=== PATIENT | female | born 1990 | race Caucasian/White ===

== ENCOUNTER 2020-02-29 16:18 | Emergency (ER) | payer BC, MEDICAID ==
--- NOTE | 2020-02-29 16:24 | EDM.PDOC ---
<Wilton Schwarz - Last Filed: 02/29/20 21:46> ED HPI GENERAL MEDICAL PROBLEM - General Stated Complaint: PAIN IN THE LEFT ABDOMINAL Time Seen by Provider: 02/29/20 16:30 Source of Information: Reports: Patient, EMS History Limitations: Reports: No Limitations left lower abdominal Pain Score (Numeric/FACES): 4 - Related Data Allergies Allergy/AdvReac Type Severity Reaction Status Date / Time No Known Allergies Allergy Verified 02/29/20 16:35 Home Meds: Home Meds Pnv No.95/Ferrous Fum/Folic AC [ Caplet] 1 each PO DAILY 02/29/20 [History] Course - Vital Signs Text/Narrative:: I assumed care of this patient at [address] Bermudez. In brief, this is a 29-year-old female who has a viable first trimester presenting with abdominal pain. She was transferred here by [facility] with lower abdominal pain. They were unable to do an ultrasound to evaluate her pain. She has been hemodynamically stable. She had lab work done at [facility] earlier today. We did obtain a pelvic ultrasound which shows an IUP at 8 weeks 2 days with normal heart rate, 2 cm subchorionic hemorrhage, and a large complex cystic lesion with internal nodularity and septations measuring 8 to 9 cm arising posterior to the uterus on the left that is likely a left adnexal lesion. Dr. Teran is contacted the [facility] physician who is coming to the emergency department to evaluate the patient. I reevaluated the patient and she is resting comfortably. Dr. Bell did evaluate the patient in the emergency department. She did discuss laparoscopy and progesterone supplementation with the patient to evaluate for possible ovarian torsion/ovarian cyst evaluation. After considering her options, the patient wants to go home tonight to follow-up with her TEMP RECRUITER Dr. Mcgowan as an outpatient. She understands that she should come back to the emergency department if her pain becomes significantly worse, she has vaginal bleeding, severe abdominal pain, or any other new or worsening symptoms. I counseled that she can take [id number] acetaminophen for pain and use a heating pad. Plan: Patient is stable to discharge home with outpatient [facility] clinic follow- up. Strict emergency department return precautions were provided, patient indicated understanding. All questions were answered prior to departure. Discharged in good condition. Departure - Departure Time of Disposition: 21:24 Disposition: Home, Self-Care 01 Condition: Good Clinical Impression: Abdominal pain affecting , Ovarian cyst affecting in first trimester, antepartum - Discharge Information *PRESCRIPTION DRUG MONITORING PROGRAM REVIEWED*: Not Applicable *COPY OF PRESCRIPTION DRUG MONITORING REPORT IN PATIENT VALENTÍN: Not Applicable Instructions: Ovarian Cystectomy, Care After, Ovarian Cyst, Abdominal Pain During Referrals: PCP,Not In Area [Primary Care Provider] - Forms: ED Department Discharge Additional Instructions: Please follow-up with your TEMP RECRUITER Dr. Mcgowan in the next 1 to 2 days for reevaluation. Warning signs to come back to the ER include: Worsening abdominal pain, severe abdominal or back pain, vaginal bleeding, or any other new or concerning symptoms. Please return the emergency department immediately if your symptoms worsen or if you feel worse. Thank you for choosing the [facility] emergency department in [place] for your medical needs today. It was a pleasure caring for you. The following information is given to patients seen in the emergency department who are being discharged. This information is to outline your options for follow-up care. We provide all patients seen in our emergency department with a follow-up referral. The need for follow-up, as well as the timing and circumstances, are variable depending upon the specifics of your emergency department visit. If you don't have a primary care physician on staff, we will provide you with a referral. We always advise you to contact your personal physician following an emergency department visit to inform them of the circumstance of the visit and for follow-up with them and/or the need for any referrals to a consulting specialist. The emergency department will also refer you to a specialist when appropriate. This referral assures that you have the opportunity for follow-up care with a specialist. All of these measure are taken in an effort to provide you with optimal care, which includes your follow-up. Under all circumstances we always encourage you to contact your private physician who remains a resource for coordinating your care. When calling for follow-up care, please make the office aware that this follow-up is from your recent emergency room visit. If for any reason you are refused follow-up, please contact the [facility] Emergency Department at and asked to speak to the emergency department charge nurse. If you do not have a primary care physician that is caring for you, you can contact these clinics below to set up an appointment to establish care: [facility] [address] [place] [address] [facility] [address] [place] [address] <Albaro Bermudez - Last Filed: 03/01/20 11:53> ED HPI GENERAL MEDICAL PROBLEM - History of Present Illness INITIAL COMMENTS - FREE TEXT/NARRATIVE: History of present illness: [] The patient has severe left lower quadrant pain. She was sent from [place]. They evaluated her there. The patient has no prior . She has not seen an manager land yet. She saw the emergency physician in [place] and they saw her and decided she needed an ultrasound because of severe left lower quadrant pain. The patient has a history of bradycardia and she was bradycardic there. She was never tachycardic or hypotensive. None set at 10:30 AM. She said the pain before in the left lower quadrant but it lasted less than an hour. Today it persisted. It does not change with movement or anything else. It is moderately severe. Review of systems: As per history of present illness and below otherwise all systems reviewed and negative. Past medical history: As per history of present illness and as reviewed below otherwise noncontributory. Surgical history: As per history of present illness and as reviewed below otherwise noncontributory. Social history: No reported history of drug or alcohol abuse. Family history: As per history of present illness and as reviewed below otherwise noncontributory. Physical exam: Constitutional - well developed, well-nourished and in no acute distress HEENT - normocephalic, no evidence of trauma - external nose and mouth normal - no mass in neck and no JVD - mucosae moist EYES - full EOM, PERRL, no icterus - no evidence of inflammation, injection, or drainage Respiratory - no respiratory distress, equal bilateral expansion, lungs clear to auscultation and no abnormal lung sounds Cardiovascular - Regular Rhythm with S1 and S2 appreciated and no murmur, gallop or rub. GI - abdomen tender left lower quadrant but soft without distension or organomegaly - normal bowel sounds - no guard or rebound Musculoskeletal no gross deformity of long bones or joints - no tenderness, swelling or edema Neurologic - Alert and oriented times four - CN II-XII grossly intact - motor sensory and coordination symmetrically normal Psychiatric - appropriate mood and affect with normal thought content Hematologic - No petechiae or purpura - mucosa appropriate color and sclera not pale - normal nail bed color and refill Integument - no rash or evidence of trauma - normal turgor Diagnostics: [] Therapeutics: [] Impression: [] Plan: [] Definitive disposition and diagnosis as appropriate pending reevaluation and review of above. ED ROS GENERAL - Review of Systems Review Of Systems: Comprehensive ROS is negative, except as noted in HPI. ED EXAM, GENERAL - Physical Exam Exam: See Below Free Text/Narrative:: My physical exam is in the HPI Course - Vital Signs Text/Narrative:: i DISCUSSED THE CASE WITH airline ticket agent CLEAN ENERGY POLICY ANALYST AND SHE WILL SEE AND EVALUATE IN THE DEPARTMENT. My shift ended and I turned the case over to LEGAL AID and my partner in the department for final disposiiton. Dr. Bell was coming to see the patient and make a disposition when my shift ended. My partner Dr. Schwarz agreed to make a disposition for this patient and address any new delevopments should tehy occur. Last Recorded V/S: Last Vital Signs Temp 37.1 C 02/29/20 21:37 Pulse 71 02/29/20 21:37 Resp 16 02/29/20 21:37 BP 111/63 02/29/20 21:37 Pulse Ox 99 02/29/20 21:37 - Orders/Labs/Meds Orders: Active Orders 24 hr Category Date Time Status Consult to Physician [CONS] Stat Cons 02/29/20 20:20 Active Labs: Laboratory Tests 02/29/20 02/29/20 Range/Units 16:40 16:40 HCG, Quant 06834.0 mIU/mL Blood Type O POSITIVE Meds: Medications Discontinued Medications Generic Name Dose Route Start Last Admin Trade Name Freq PRN Reason Stop Dose Admin Morphine Sulfate 4 mg 02/29/20 18:08 02/29/20 18:15 Morphine IVPUSH 02/29/20 18:09 4 mg ONETIME ONE Administration Ondansetron HCl 4 mg 02/29/20 18:09 02/29/20 18:14 Zofran IVPUSH 02/29/20 18:10 4 mg ONETIME ONE Administration
[2020-02-29] MEDS ORDERED: Morphine 4 MG/ML Syringe IVPUSH ONE (18:08)
[2020-02-29] MEDS ORDERED: Ondansetron 4 MG/2 ML SDV IVPUSH ONE (18:09)
--- NOTE | 2020-02-29 18:39 | US ---
INDICATION: female with left lower quadrant pain. TECHNIQUE: Transvaginal pelvic/obstetrical ultrasound Findings : Single live intrauterine is identified with mean gestational age of 8 weeks 2 days corresponding estimated date of delivery of 10/08/2020. Specifically an intrauterine gestational sac containing a yolk sac and embryo with cardiac activity is identified with cardiac activity in the embryo at 178 beats per minute. Small amount of fluid in the endocervix could be related to blood products. Small subchorionic hemorrhage along the inferior left aspect of the gestational sac measures up to 2.0 x 0.9 cm. Yolk sac is upper limits normal for size at 5.2 mm. Large complex solid and cystic lesion posterior to the uterus extending into the left adnexal region measures 8.8 x 8.1 x 6.8 cm. This contains septations which are prominently thick with internal soft tissue nodularity. It is difficult to determine with certainty if this arises from the left ovary or adjacent to it. No definite blood flow is seen within this lesion. This is much larger than typical for physiologic corpus luteal ovarian cyst. Neoplastic etiology including a dermoid would be a consideration. Given the live intrauterine , it would be unusual to have an ectopic at the same time and this is larger than would be expected for such etiology. Thus I suspect this is a left ovarian or adnexal lesion of separate etiology. If this arises in the left ovary which is difficult to confirm with certainty if patient would be at risk for ovarian torsion. It is difficult to tell with certainty if the left ovary is seen along the anterior aspect of this mass. Right ovary is normal measuring 3.0 x 1.2 x 1.6 cm. Remainder negative. IMPRESSION: 1. Single live intrauterine with mean gestational age of 8 weeks 2 days corresponding estimated delivery of 10/08/2020. 2. 2 cm subchorionic hemorrhage along the inferior left aspect of the gestational sac with small amount of fluid in the endocervix likely related to blood products from a subchorionic hemorrhage. 3. Yolk sac is at the upper limits of normal for size at 5.2 mm 4. Large complex cystic lesion containing internal nodularity and moderately moderate to prominently thick septations measures 8-9 cm arising posterior to the uterus on the left is likely a left adnexal lesion. This is much larger than typical for a hemorrhagic physiologic corpus luteal cyst and does not have the typical appearance of such a physiologic lesion. Neoplastic etiology including dermoid or other neoplasm should be excluded. Large endometrioma could cause this finding also. Other complex cystic and solid pelvic masses remain a diagnostic consideration. OBGYN consult to guide further management this is recommended. It is difficult to tell with certainty if this arises in the left ovary or adjacent to it. No discrete blood flow within this mass. 5. Right ovary within normal limits. Dictated by Radhames Mccracken MD @ Feb 29 2020 6:24PM Signed by Dr. Radhames Mccracken @ Feb 29 2020 6:38PM
--- NOTE | 2020-02-29 20:29 | EDM.PDOC ---
ED HPI GENERAL MEDICAL PROBLEM - General Chief Complaint: Abdominal Pain Stated Complaint: PAIN IN THE LEFT ABDOMINAL Time Seen by Provider: 02/29/20 20:20 Source of Information: Reports: Patient History Limitations: Reports: No Limitations - History of Present Illness INITIAL COMMENTS - FREE TEXT/NARRATIVE: 29 yo @ 8w5d ( d) here complaining of left side pain for 1 day. she states she had the pain last month and it was self limiting. She states that her pain varies in intensity from dull to severe. she is not in a lot of pain right now due to the morphine she recieved in [facility] and in [place]. she denies any medical problems. she denies nausea and vomiting , she has some rectal pressure PMH: nil Past surgery: surgery for fracture GynHx; non contributory Exam: General: Appears comfortable CVS: S1S2 no murmurs Chest: CTA BL Abdomen; Flat , non distended , no organomegaly , no rebound or guarding Pelvic: Normal external genitalia , normal sized anteverted uterus , Left adnexal fullness noted mild right adnexal tenderness , no left adnexal tenderness VSS: 102/64 , HR: 76 USS: IUP @ 8w2d with FHR , subchorionic hemorrhage Left adnexal complex cyst that may arise from the ovary , however does not appear physiology cannot rule out neoplasm I viewed images , septation noted but appears no doppler flow within the mass A/P 29yo @ 8w5d with symptomatic left adnexal cyst , cannot rule out ovarian torsion Plan Patient informed of the varied scenarios for diagnosis it may be a left adnexal cyst with or without torsion she was informed that the way to definately diagnosis this is via laparoscopy , i informed her that cyst removal may cause increased risk of miscarriage if this is the corpus luteum of . however she can have progesterone supplementation. However not doing a laparoscopy may leave a torsion undiagnosed and can lead to ovarian necrosis. I also spoke extensive with spouse on the phone and gave them time to make a decision on what to do Addendum: Patient states her pain is well controlled now and will like to follow up with her OB in [place] tomorrow, Informed her that if pain gets worse she should be seen as soon as possible . left lower abdominal Pain Score (Numeric/FACES): 4 - Related Data Allergies Allergy/AdvReac Type Severity Reaction Status Date / Time No Known Allergies Allergy Verified 02/29/20 16:35 Home Meds: Home Meds Pnv No.95/Ferrous Fum/Folic AC [ Caplet] 1 each PO DAILY 02/29/20 [History] Past Medical History - Infectious Disease History Infectious Disease History: Reports: Chicken Pox - Past Surgical History HEENT Surgical History: Reports: Adenoidectomy, Tonsillectomy Musculoskeletal Surgical History: Reports: Other (See Below) Other Musculoskeletal Surgeries/Procedures:: right knee surgery Social & Family History - Tobacco Use Tobacco Use Status *Q: Never Tobacco User - Recreational Drug Use Recreational Drug Use: No ED ROS GENERAL - Review of Systems Review Of Systems: Comprehensive ROS is negative, except as noted in HPI. ED EXAM - Physical Exam Exam: See Below (HPI) Course - Vital Signs Last Recorded V/S: Last Vital Signs Temp 36.2 C 02/29/20 16:36 Pulse 84 02/29/20 19:36 Resp 16 02/29/20 19:36 BP 102/64 02/29/20 19:36 Pulse Ox 99 02/29/20 19:36 - Orders/Labs/Meds Orders: Active Orders 24 hr Category Date Time Status Notify Provider Consults [RC] ASDIRECTED Care 02/29/20 20:21 Active Consult to Physician [CONS] Stat Cons 02/29/20 20:20 Active Labs: Laboratory Tests 02/29/20 02/29/20 Range/Units 16:40 16:40 HCG, Quant 04107.0 mIU/mL Blood Type O POSITIVE Meds: Medications Discontinued Medications Generic Name Dose Route Start Last Admin Trade Name Juana PRN Reason Stop Dose Admin Morphine Sulfate 4 mg 02/29/20 18:08 02/29/20 18:15 Morphine IVPUSH 02/29/20 18:09 4 mg ONETIME ONE Administration Ondansetron HCl 4 mg 02/29/20 18:09 02/29/20 18:14 Zofran IVPUSH 02/29/20 18:10 4 mg ONETIME ONE Administration Departure - Departure Time of Disposition: 20:45 Disposition: Home, Self-Care 01 Clinical Impression: Ovarian cyst affecting in first trimester, antepartum - Discharge Information *PRESCRIPTION DRUG MONITORING PROGRAM REVIEWED*: Not Applicable *COPY OF PRESCRIPTION DRUG MONITORING REPORT IN PATIENT VALENTÍN: Not Applicable Referrals: PCP,Not In Area [Primary Care Provider] - Sepsis Event Note (ED) - Evaluation Sepsis Screening Result: No Definite Risk - Focused Exam Vital Signs: Vital Signs Temp Pulse Resp BP Pulse Ox 02/29/20 19:36 84 16 102/64 99 02/29/20 19:06 70 18 117/72 99 02/29/20 18:30 74 18 97/72 99 02/29/20 18:20 92 98 02/29/20 16:36 36.2 C 78 18 114/55 L 99 - Problem List & Annotations (1) Unspecified ovarian cyst, left side SNOMED Code(s): 80745308 Code(s): N83.202 - UNSPECIFIED OVARIAN CYST, LEFT SIDE Status: Acute Current Visit: Yes (2) Adnexal tenderness, left SNOMED Code(s): 075845999 Code(s): R10.2 - PELVIC AND PERINEAL PAIN Status: Acute Current Visit: Yes - Problem List Review Problem List Initiated/Reviewed/Updated: Yes - Assessment/Plan Admission H&P: Please use this note as an admission H&P
== END 2020-02-29 21:48 | disposition home or self-care (01) ==
LOC: MW.ED 16:18
DX: O34.81 Maternal care for other abnormalities of pelvic organs, first trimester (principal); N83.202 Unspecified ovarian cyst, left side; Z3A.08 8 weeks gestation of pregnancy
CPT/HCPCS: 36415; 76815; 84702; 86900; 86901; 96374; 96375; 99285; J2270; J2405; 99283

== ENCOUNTER 2020-10-19 23:50 | Inpatient (IN) | payer BC ==
[2020-10-20] MEDS ORDERED: Sodium Chloride 0.9% 10 ML SDV IV PRN (00:57)
[2020-10-20] MEDS ORDERED: Butorphanol 1 MG/ML SDV IVPUSH PRN (00:57)
[2020-10-20] MEDS ORDERED: Water For Irrigation,Sterile 1,000 ML Container IRR PRN (00:57)
[2020-10-20] MEDS ORDERED: Tranexamic Acid 1,000 MG in Sodium Chloride 0.9% 100 ML IV PRN (00:57)
[2020-10-20] MEDS ORDERED: Terbutaline 1 MG/ML SDV SUBCUT PRN (00:57)
[2020-10-20] MEDS ORDERED: Nalbuphine 10 MG/1 ML Vial IVPUSH PRN (00:57)
[2020-10-20] MEDS ORDERED: Ondansetron 4 MG/2 ML SDV IVPUSH PRN (00:57)
[2020-10-20] MEDS ORDERED: Methylergonovine 0.2 MG/1 ML Amp IM PRN (00:57)
[2020-10-20] MEDS ORDERED: Sodium Chloride 0.9% 2.5 ML Syringe FLUSH PRN (00:57)
[2020-10-20] MEDS ORDERED: Misoprostol 25 MCG (1/4 of 100 MCG) Tab VAG PRN ×2 (00:57)
[2020-10-20] MEDS ORDERED: Misoprostol 200 MCG Tab PO PRN (00:57)
[2020-10-20] MEDS ORDERED: Carboprost Tromethamine 250 MCG/1 ML Amp IM PRN (00:57)
[2020-10-20] MEDS ORDERED: Lidocaine 1% 50 ML MDV INJECT PRN (00:57)
[2020-10-20] MEDS ORDERED: Sodium Chloride 0.9% 10 ML Syringe FLUSH PRN (00:57)
[2020-10-20] MEDS ORDERED: Oxytocin/0.9 % Sodium Chloride 30 UNIT/500 ML BAG IV SCH ×2 (01:00)
[2020-10-20] MEDS: Lactated Ringers 1,000 ML IV SCH ×3 (12:28→20:03)
[2020-10-20] MEDS ORDERED: Bupivacaine 0.25% 30 ML SDV ONE (18:19)
[2020-10-20] MEDS ORDERED: Ropivacaine HCl/PF 200 ML ONE (18:19)
[2020-10-20] MEDS ORDERED: ePHEDrine 50 MG/ML SDV IVPUSH PRN (18:56)
--- NOTE | 2020-10-20 18:56 | PCM.PREANE ---
Preanesthetic Assessment - Anesthesia/Transfusion/Family Hx Anesthesia History: Prior Anesthesia Without Reaction Family History of Anesthesia Reaction: No Transfusion History: No Prior Transfusion(s) - Review of Systems General: No Symptoms Pulmonary: No Symptoms Cardiovascular: No Symptoms Gastrointestinal: No Symptoms Neurological: No Symptoms Other: Reports: None - Physical Assessment Height: 5 ft 2 in Weight: 178 lb ASA Class: 2 Mental Status: Alert & Oriented x3 Airway Class: Mallampati = 3 Dentition: Reports: Normal Dentition ROM/Head Extension: Full Lungs: Clear to Auscultation, Normal Respiratory Effort Cardiovascular: Regular Rate, Regular Rhythm - Lab Values: Laboratory Last Values WBC 19.75 K/uL (4.0-11.0) H 10/20/20 02:42 RBC 4.14 M/uL (4.30-5.90) L 10/20/20 02:42 Hgb 12.9 g/dL (12.0-16.0) 10/20/20 02:42 Hct 36.3 % (36.0-46.0) 10/20/20 02:42 MCV 87.7 fL (80.0-98.0) 10/20/20 02:42 MCH 31.2 pg (27.0-32.0) 10/20/20 02:42 MCHC 35.5 g/dL (31.0-37.0) 10/20/20 02:42 RDW Std Deviation 39.3 fl (28.0-62.0) 10/20/20 02:42 RDW Coeff of Meme 12 % (11.0-15.0) 10/20/20 02:42 Plt Count 218 K/uL (150-400) 10/20/20 02:42 MPV 11.20 fL (7.40-12.00) 10/20/20 02:42 Nucleated RBC % 0.0 /100WBC 10/20/20 02:42 Nucleated RBCs # 0 K/uL 10/20/20 02:42 Membrane Rupture POSITIVE 10/20/20 00:05 SARS-CoV-2 RNA (MANAS) NEGATIVE (NEGATIVE) 10/20/20 02:44 Blood Type O POSITIVE 10/20/20 02:40 Antibody Screen NEGATIVE 10/20/20 02:40 - Allergies Allergies/Adverse Reactions: Allergies Allergy/AdvReac Type Severity Reaction Status Date / Time No Known Allergies Allergy Verified 02/29/20 16:35 - Blood Blood Available: Yes Product(s) Available: PRBC - Anesthesia Plan Pre-Op Medication Ordered: None - Acknowledgements Anesthesia Type Planned: Epidural Pt an Appropriate Candidate for the Planned Anesthesia: Yes Alternatives and Risks of Anesthesia Discussed w Pt/Guardian: Yes Pt/Guardian Understands and Agrees with Anesthesia Plan: Yes PreAnesthesia Questionnaire - Past Health History Medical/Surgical History: Denies Medical/Surgical History Genitourinary History: Reports: UTI, Recurrent, Other (See Below) Other Genitourinary History: kidney, bladder infection SKULL CHOPPER History: Reports: Musculoskeletal History: Reports: Fracture Other Musculoskeletal History: right wrist and ankle - Infectious Disease History Infectious Disease History: Reports: Chicken Pox - Past Surgical History HEENT Surgical History: Reports: Adenoidectomy, Tonsillectomy Musculoskeletal Surgical History: Reports: Other (See Below) Other Musculoskeletal Surgeries/Procedures:: right knee surgery - HOME MEDS Home Medications: Home Meds Pnv No.95/Ferrous Fum/Folic AC [ Caplet] 1 each PO DAILY 02/29/20 [History] - CURRENT (IN HOUSE) MEDS Current Meds: Current Medications Butorphanol Tartrate (Butorphanol 1 Mg/Ml Sdv) 1 mg IVPUSH Q1H PRN PRN Reason: Pain (severe 7-10) Carboprost Tromethamine (Carboprost Tromethamine 250 Mcg/1 Ml Amp) 250 mcg IM ASDIRECTED PRN PRN Reason: Post Hemorrhage Lactated Ringer's (Ringers, Lactated) 1,000 mls @ 150 mls/hr IV ASDIRECTED LADI Last Admin: 10/20/20 18:18 Dose: 999 mls/hr Documented by: Oxytocin/Sodium Chloride (Oxytocin 30 Unit/500 Ml-Ns) 30 unit in 500 mls @ 999 mls/hr IV TITRATE LADI Tranexamic Acid 1,000 mg/ (Sodium Chloride) 110 mls @ 660 mls/hr IV ONETIME PRN PRN Reason: Bleeding Oxytocin/Sodium Chloride (Oxytocin 30 Unit/500 Ml-Ns) 30 unit in 500 mls @ 2 mls/hr IV TITRATE LADI; Protocol Last Titration: 10/20/20 17:06 Dose: 16 munits/min, 16 mls/hr Documented by: Lidocaine HCl (Lidocaine 1% 50 Ml Mdv) 50 ml INJECT ONETIME PRN PRN Reason: Laceration repair Methylergonovine Maleate (Methylergonovine 0.2 Mg/1 Ml Amp) 0.2 mg IM ASDIRECTED PRN PRN Reason: Post Hemorrhage Misoprostol (Misoprostol 200 Mcg Tab) 200 mcg PO ONETIME PRN PRN Reason: Post Hemorrhage Misoprostol (Misoprostol 25 Mcg (1/4 Of 100 Mcg) Tab) 25 mcg VAG ONETIME PRN PRN Reason: Cervical Ripening Misoprostol (Misoprostol 25 Mcg (1/4 Of 100 Mcg) Tab) 25 mcg VAG Q4H PRN PRN Reason: Cervical Ripening Nalbuphine HCl (Nalbuphine 10 Mg/1 Ml Vial) 10 mg IVPUSH Q1H PRN PRN Reason: Pain (severe 7-10) Ondansetron HCl (Ondansetron 4 Mg/2 Ml Sdv) 4 mg IVPUSH Q4H PRN PRN Reason: Nausea/Vomiting Sodium Chloride (Sodium Chloride 0.9% 10 Ml Syringe) 10 ml FLUSH ASDIRECTED PRN PRN Reason: Keep Vein Open Sodium Chloride (Sodium Chloride 0.9% 2.5 Ml Syringe) 2.5 ml FLUSH ASDIRECTED PRN PRN Reason: Keep Vein Open Sodium Chloride (Sodium Chloride 0.9% 10 Ml Sdv) 10 ml IV ASDIRECTED PRN PRN Reason: IV Use Sterile Water (Water For Irrigation,Sterile 1,000 Ml Container) 1,000 ml IRR ASDIRECTED PRN PRN Reason: delivery Terbutaline Sulfate (Terbutaline 1 Mg/Ml Sdv) 0.25 mg SUBCUT ASDIRECTED PRN PRN Reason: Tacysystole Discontinued Medications Bupivacaine HCl (Bupivacaine 0.25% 30 Ml Sdv) Confirm Administered Dose 30 ml .ROUTE .STK-MED ONE Stop: 10/20/20 18:20 Ropivacaine (Naropin 0.2%) Confirm Administered Dose 200 mls @ as directed .ROUTE .STK-MED ONE Stop: 10/20/20 18:20 - Pre-Procedure Checklist Attending Provider Aware: Yes Chart Reviewed: Yes Consent Signed: Yes Labs Reviewed: Yes VS/FHR Reviewed: Yes Patient Identification Confirmation Method: Reports: Verbal Patient Pt an Appropriate Candidate for the Planned Anesthesia: Yes Alternatives and Risks of Anesthesia Discussed w Pt/Guardian: Yes - Procedure Procedure Start Date: 10/20/20 Procedure Start Time: 18:[address]: Reports: Blood Pressure, Heart Rate, SPO2 Functional IV: Yes Safety Measures: Reports: Patient Identified, Procedure Verified, Site Verified, Procedure Time Out Patient Position: Reports: Sitting Prep: Reports: Betadine x3, Sterile Drape Local Anesthetic: Reports: Intradermal Wheal w Lidocaine 1% Regional Placement Level: Reports: L3-4 Needle: Reports: 17 g Touhy Approach: Reports: Midline Technique: Reports: LETICIA Plastic Syringe Parasthesia: Reports: None Fluid Obtained: Reports: None Test Dose Time: 18:30 Test Dose Medication: Reports: Lidocaine 1.5% w Epinephrine 1:200,000 Test Dose Response: Reports: Negative Loading Dose Time: 18:28 Loading Dose Medication: bupivicaine 0.25% 10cc Loading Dose Patient Position: sitting Continuous Infusion Start Time: 18:30 Continuous Infusion Medication: ropivicaine 0.2% Continuous Infusion Rate: 16 Continuous Infusion PCS Bolus Option: 4 Continuous Infusion Lockout Dose (cc/hr): 15 Patient Position Post Placement: Reports: Supline/HEMAL VS and FHR Monitored in Unit Post Placement: Yes Procedure End Date: 10/20/20 Procedure End Time: 19:23
[2020-10-20] MEDS ORDERED: Lactated Ringers 1,000 ML IRR SCH (19:25)
[2020-10-20] MEDS ORDERED: Lactated Ringers 1,000 ML IV SCH (19:45)
[2020-10-21] MEDS ORDERED: oxyCODONE 5 MG Tab PO PRN (00:22)
[2020-10-21] MEDS ORDERED: Benzocaine/Menthol 20%-0.5% Spray 78 GM Cannister TOP PRN (00:22)
[2020-10-21] MEDS ORDERED: Acetaminophen 500 MG Tab PO PRN ×2 (00:22)
[2020-10-21] MEDS ORDERED: Witch Hazel Medicated Pads 40/Jar TOP PRN (00:22)
[2020-10-21] MEDS ORDERED: Ibuprofen 400 MG Tab PO PRN (00:22)
[2020-10-21] MEDS ORDERED: Lanolin 100% Cream 7 GM Tube TOP PRN (00:22)
[2020-10-21] MEDS ORDERED: Bisacodyl 10 MG Supp RECTAL PRN (00:22)
[2020-10-21] MEDS ORDERED: Docusate Sodium 100 MG Cap PO PRN (00:22)
--- NOTE | 2020-10-21 00:26 | PCM.DEL ---
L & D Note - General Info Date of Service: 10/21/20 - Delivery Note Labor: Spontaneous, Augmented by Oxytocin Delivery Outcome: Livebirth Infant Delivery Method: Spontaneous Vaginal Delivery-Single Infant Delivery Mode: Spontaneous Presentation: Left Occiput Anterior (KATRIN) Nuchal Cord: Present Anesthesia Type: Epidural Amniotic Fluid Description: Meconium Stained Episiotomy Type: None Laceration: Periurethral (Bilateral), Vaginal Suture type: Vicryl Suture size: 3-0 Placenta: Intact, Spontaneous Cord: 3 Vessels Resuscitation Needed: No [place]: Bulb Syringe Score 1 min: 8 Score 5 min: 9 Second Stage Interventions: Reports: Pushing Effectively, Pushing, Squat Bar Pulling on Sheet - General Info Date of Service: 10/21/20 Functional Status: Reports: Pain Controlled - Review of Systems General: Reports: No Symptoms HEENT: Reports: No Symptoms Pulmonary: Reports: No Symptoms Cardiovascular: Reports: No Symptoms Gastrointestinal: Reports: No Symptoms Genitourinary: Reports: No Symptoms Musculoskeletal: Reports: No Symptoms Skin: Reports: No Symptoms Neurological: Reports: No Symptoms Psychiatric: Reports: No Symptoms - Patient Data Weight - Most Recent: 178 lb I&O - Last 24 Hours: Intake & Output 10/20/20 10/20/20 10/21/20 14:59 22:59 06:59 Intake Total 1000 Balance 1000 Lab Results Last 24 Hours: Laboratory Results - last 24 hr 10/20/20 10/20/20 10/20/20 Range/Units 00:05 02:40 02:42 WBC 19.75 H (4.0-11.0) K/uL RBC 4.14 L (4.30-5.90) M/uL Hgb 12.9 (12.0-16.0) g/dL Hct 36.3 (36.0-46.0) % MCV 87.7 (80.0-98.0) fL MCH 31.2 (27.0-32.0) pg MCHC 35.5 (31.0-37.0) g/dL RDW Std Deviation 39.3 (28.0-62.0) fl RDW Coeff of Meme 12 (11.0-15.0) % Plt Count 218 (150-400) K/uL MPV 11.20 (7.40-12.00) fL Nucleated RBC % 0.0 /100WBC Nucleated RBCs # 0 K/uL Membrane Rupture POSITIVE SARS-CoV-2 RNA (MANAS) (NEGATIVE) Blood Type O POSITIVE Antibody Screen NEGATIVE 10/20/20 Range/Units 02:44 WBC (4.0-11.0) K/uL RBC (4.30-5.90) M/uL Hgb (12.0-16.0) g/dL Hct (36.0-46.0) % MCV (80.0-98.0) fL MCH (27.0-32.0) pg MCHC (31.0-37.0) g/dL RDW Std Deviation (28.0-62.0) fl RDW Coeff of Meme (11.0-15.0) % Plt Count (150-400) K/uL MPV (7.40-12.00) fL Nucleated RBC % /100WBC Nucleated RBCs # K/uL Membrane Rupture SARS-CoV-2 RNA (MANAS) NEGATIVE (NEGATIVE) Blood Type Antibody Screen Med Orders - Current: Current Medications Ephedrine Sulfate (Ephedrine 50 Mg/Ml Sdv) 10 mg IVPUSH Q5M PRN PRN Reason: Hypotension Oxytocin/Sodium Chloride (Oxytocin 30 Unit/500 Ml-Ns) 30 unit in 500 mls @ 999 mls/hr IV TITRATE LADI Tranexamic Acid 1,000 mg/ (Sodium Chloride) 110 mls @ 660 mls/hr IV ONETIME PRN PRN Reason: Bleeding Oxytocin/Sodium Chloride (Oxytocin 30 Unit/500 Ml-Ns) 30 unit in 500 mls @ 2 mls/hr IV TITRATE LADI; Protocol Last Titration: 10/20/20 18:57 Dose: 4 munits/min, 4 mls/hr Documented by: Lactated Ringer's (Ringers, Lactated) 1,000 mls @ 150 mls/hr IV ASDIRECTED LADI Methylergonovine Maleate (Methylergonovine 0.2 Mg/1 Ml Amp) 0.2 mg IM ASDIRECTED PRN PRN Reason: Post Hemorrhage Misoprostol (Misoprostol 200 Mcg Tab) 200 mcg PO ONETIME PRN PRN Reason: Post Hemorrhage Misoprostol (Misoprostol 25 Mcg (1/4 Of 100 Mcg) Tab) 25 mcg VAG ONETIME PRN PRN Reason: Cervical Ripening Misoprostol (Misoprostol 25 Mcg (1/4 Of 100 Mcg) Tab) 25 mcg VAG Q4H PRN PRN Reason: Cervical Ripening Nalbuphine HCl (Nalbuphine 10 Mg/1 Ml Vial) 10 mg IVPUSH Q1H PRN PRN Reason: Pain (severe 7-10) Ondansetron HCl (Ondansetron 4 Mg/2 Ml Sdv) 4 mg IVPUSH Q4H PRN PRN Reason: Nausea/Vomiting Sodium Chloride (Sodium Chloride 0.9% 10 Ml Syringe) 10 ml FLUSH ASDIRECTED PRN PRN Reason: Keep Vein Open Sodium Chloride (Sodium Chloride 0.9% 2.5 Ml Syringe) 2.5 ml FLUSH ASDIRECTED PRN PRN Reason: Keep Vein Open Sodium Chloride (Sodium Chloride 0.9% 10 Ml Sdv) 10 ml IV ASDIRECTED PRN PRN Reason: IV Use Sterile Water (Water For Irrigation,Sterile 1,000 Ml Container) 1,000 ml IRR ASDIRECTED PRN PRN Reason: delivery Terbutaline Sulfate (Terbutaline 1 Mg/Ml Sdv) 0.25 mg SUBCUT ASDIRECTED PRN PRN Reason: Tacysystole Discontinued Medications Bupivacaine HCl (Bupivacaine 0.25% 30 Ml Sdv) Confirm Administered Dose 30 ml .ROUTE .[facility]-MED ONE Stop: 10/20/20 18:20 Butorphanol Tartrate (Butorphanol 1 Mg/Ml Sdv) 1 mg IVPUSH Q1H PRN PRN Reason: Pain (severe 7-10) Carboprost Tromethamine (Carboprost Tromethamine 250 Mcg/1 Ml Amp) 250 mcg IM ASDIRECTED PRN PRN Reason: Post Hemorrhage Lactated Ringer's (Ringers, Lactated) 1,000 mls @ 150 mls/hr IV ASDIRECTED [facility] Last Admin: 10/20/20 20:03 Dose: 150 mls/hr Documented by: Ropivacaine (Naropin 0.2%) Confirm Administered Dose 200 mls @ as directed .ROUTE .STK-MED ONE Stop: 10/20/20 18:20 Lactated Ringer's (Ringers, Lactated) 1,000 mls @ 250 mls/hr IRR ASDIRECTED LADI; Protocol Last Admin: 10/20/20 19:18 Dose: 250 mls/hr Documented by: Lidocaine HCl (Lidocaine 1% 50 Ml Mdv) 50 ml INJECT ONETIME PRN PRN Reason: Laceration repair - Exam Urinary Catheter Total Time: 0Days 0Hours - Problem List Review Problem List Initiated/Reviewed/Updated: Yes - Assessment Assessment:: Rufina Ramirez is a 30 yo female s/p post day 1. - Plan Plan:: Routine care - GBS negative, O positive, rubella immune - PO pain medications PRN - Encourage ambulation - Regular diet as tolerated -
--- NOTE | 2020-10-21 07:54 | PCM.PNPP ---
<Anita Armstrong - Last Filed: 10/21/20 07:49> - General Info Date of Service: 10/21/20 Subjective Update: Patient doing well this morning. Notes minimal pain and bleeding. Was able to ambulate without assistance. Urinating and had bowel movement without difficulty. is going well so far. Denies fever, chest pain, shortness of breath, lightheadedness, and pain in lower extremities. Functional Status: Reports: Pain Controlled, Tolerating Diet, Ambulating, Urinating - Review of Systems General: Reports: No Symptoms HEENT: Reports: No Symptoms Pulmonary: Reports: No Symptoms Cardiovascular: Reports: No Symptoms Gastrointestinal: Reports: No Symptoms Genitourinary: Reports: No Symptoms Musculoskeletal: Reports: No Symptoms Skin: Reports: No Symptoms Neurological: Reports: No Symptoms Psychiatric: Reports: No Symptoms - Patient Data Weight - Most Recent: 80.739 kg I&O - Last 24 Hours: Intake & Output 10/20/20 10/21/20 10/21/20 22:59 06:59 14:59 Intake Total 1000 Output Total 450 Balance 1000 -450 Lab Results - Last 24 Hours: Laboratory Results - last 24 hr 10/21/20 Range/Units 00:10 Cord ABG pH 7.161 L (7.18-7.38) Cord ABG Base Excess -11 L (-10--2) Cord VBG pH 7.127 L (7.25-7.45) Cord VBG Base Excess -8 (-10--2) Med Orders - Current: Current Medications Acetaminophen (Acetaminophen 500 Mg Tab) 500 mg PO Q4H PRN PRN Reason: Pain (mild 1-3) Acetaminophen (Acetaminophen 500 Mg Tab) 1,000 mg PO Q4H PRN PRN Reason: Pain (mild 1-3) Benzocaine/Menthol (Benzocaine/Menthol 20%-0.5% [place] 78 Gm Cannister) 78 gm TOP ASDIRECTED PRN PRN Reason: Perineal Comfort Measure Last Admin: 10/21/20 03:07 Dose: 1 can Documented by: Bisacodyl (Bisacodyl 10 Mg Supp) 10 mg RECTAL ONETIME PRN PRN Reason: Constipation Docusate Sodium (Docusate Sodium 100 Mg Cap) 100 mg PO Q12H PRN PRN Reason: Constipation Emollient Ointment (Lanolin 100% Cream 7 Gm Tube) 0 gm TOP ASDIRECTED PRN PRN Reason: Sore Nipples Ephedrine Sulfate (Ephedrine 50 Mg/Ml Sdv) 10 mg IVPUSH Q5M PRN PRN Reason: Hypotension Lactated Ringer's (Ringers, Lactated) 1,000 mls @ 150 mls/hr IV ASDIRECTED LADI Ibuprofen (Ibuprofen 400 Mg Tab) 400 mg PO Q4H PRN PRN Reason: Pain (mild 1-3) Ibuprofen (Ibuprofen 800 Mg Tab) 800 mg PO Q6H PRN PRN Reason: Pain (mild 1-3) Oxycodone HCl (Oxycodone 5 Mg Tab) 5 mg PO Q2H PRN PRN Reason: Pain (severe 7-10) Sodium Chloride (Sodium Chloride 0.9% 10 Ml Syringe) 10 ml FLUSH ASDIRECTED PRN PRN Reason: Keep Vein Open Sodium Chloride (Sodium Chloride 0.9% 2.5 Ml Syringe) 2.5 ml FLUSH ASDIRECTED PRN PRN Reason: Keep Vein Open Sodium Chloride (Sodium Chloride 0.9% 10 Ml Sdv) 10 ml IV ASDIRECTED PRN PRN Reason: IV Use Witch Sushila (Witch Sushila Medicated Pads 40/Jar) 1 pad TOP ASDIRECTED PRN PRN Reason: comfort care Last Admin: 10/21/20 03:07 Dose: 1 tub Documented by: Discontinued Medications Bupivacaine HCl (Bupivacaine 0.25% 30 Ml Sdv) Confirm Administered Dose 30 ml .ROUTE .[facility]-MED ONE Stop: 10/20/20 18:20 Last Admin: 10/21/20 02:32 Dose: Not Given Documented by: Butorphanol Tartrate (Butorphanol 1 Mg/Ml Sdv) 1 mg IVPUSH Q1H PRN PRN Reason: Pain (severe 7-10) Carboprost Tromethamine (Carboprost Tromethamine 250 Mcg/1 Ml Amp) 250 mcg IM ASDIRECTED PRN PRN Reason: Post Hemorrhage Lactated Ringer's (Ringers, Lactated) 1,000 mls @ 150 mls/hr IV ASDIRECTED LADI Last Admin: 10/20/20 20:03 Dose: 150 mls/hr Documented by: Oxytocin/Sodium Chloride (Oxytocin 30 Unit/500 Ml-Ns) 30 unit in 500 mls @ 999 mls/hr IV TITRATE LADI Tranexamic Acid 1,000 mg/ (Sodium Chloride) 110 mls @ 660 mls/hr IV ONETIME PRN PRN Reason: Bleeding Oxytocin/Sodium Chloride (Oxytocin 30 Unit/500 Ml-Ns) 30 unit in 500 mls @ 2 mls/hr IV TITRATE LADI; Protocol Last Titration: 10/20/20 18:57 Dose: 4 munits/min, 4 mls/hr Documented by: Ropivacaine (Naropin 0.2%) Confirm Administered Dose 200 mls @ as directed .ROUTE .STK-MED ONE Stop: 10/20/20 18:20 Last Admin: 10/21/20 02:32 Dose: Not Given Documented by: Lactated Ringer's (Ringers, Lactated) 1,000 mls @ 250 mls/hr IRR ASDIRECTED LADI; Protocol Last Admin: 10/20/20 19:18 Dose: 250 mls/hr Documented by: Lidocaine HCl (Lidocaine 1% 50 Ml Mdv) 50 ml INJECT ONETIME PRN PRN Reason: Laceration repair Methylergonovine Maleate (Methylergonovine 0.2 Mg/1 Ml Amp) 0.2 mg IM ASDIRECTED PRN PRN Reason: Post Hemorrhage Misoprostol (Misoprostol 200 Mcg Tab) 200 mcg PO ONETIME PRN PRN Reason: Post Hemorrhage Misoprostol (Misoprostol 25 Mcg (1/4 Of 100 Mcg) Tab) 25 mcg VAG ONETIME PRN PRN Reason: Cervical Ripening Misoprostol (Misoprostol 25 Mcg (1/4 Of 100 Mcg) Tab) 25 mcg VAG Q4H PRN PRN Reason: Cervical Ripening Nalbuphine HCl (Nalbuphine 10 Mg/1 Ml Vial) 10 mg IVPUSH Q1H PRN PRN Reason: Pain (severe 7-10) Ondansetron HCl (Ondansetron 4 Mg/2 Ml Sdv) 4 mg IVPUSH Q4H PRN PRN Reason: Nausea/Vomiting Sterile Water (Water For Irrigation,Sterile 1,000 Ml Container) 1,000 ml IRR ASDIRECTED PRN PRN Reason: delivery Terbutaline Sulfate (Terbutaline 1 Mg/Ml Sdv) 0.25 mg SUBCUT ASDIRECTED PRN PRN Reason: Tacysystole - Interaction Infant Disposition, : [place] in Room with Family Infant Interaction: Holding Feeding: Breastfed ; Nursed Well Support Person: - Recovery Exam Fundal Tone: Firm Fundal Level: 1 Fingerbreadths Below Umbilicus Fundal Placement: Midline Lochia Amount: Small Lochia Color: Rubra/Red Episiotomy/Laceration: Approximated Bladder Status: Voiding Urinary Elimination: Voided - Exam General: Alert, Oriented HEENT: Pupils Equal, Pupils Reactive Neck: Supple Lungs: Clear to Auscultation, Normal Respiratory Effort Cardiovascular: Regular Rate, Regular Rhythm GI/Abdominal Exam: Normal Bowel Sounds, Soft, Non-Tender, No Distention Extremities: Normal Inspection, Normal Range of Motion, Non-Tender, Pedal Edema (Trace) Skin: Warm, Dry, Intact Neurological: No New Focal Deficit Psy/Mental Status: Alert, Normal Affect, Normal Mood - Problem List Review Problem List Initiated/Reviewed/Updated: Yes - Assessment Assessment:: Rufina Ramirez is a 30 yo female s/p post day 1. - Plan Plan:: Routine care - GBS negative, O positive, rubella immune - PO pain medications PRN - Minimal bleeding, continue to monitor bleeding and symptoms - Encourage ambulation - Regular diet as tolerated - - Plans to do NFP for contraception <Jessa Bell - Last Filed: 10/21/20 19:23> - General Info Date of Service: 10/21/20 - Patient Data Vital Signs - Most Recent: Last Vital Signs Temp 36.2 C 10/21/20 17:51 Pulse 79 10/21/20 17:51 Resp 16 10/21/20 17:51 BP 115/73 10/21/20 17:51 Pulse Ox 97 10/21/20 17:51 I&O - Last 24 Hours: Intake & Output 10/21/20 10/21/20 10/21/20 06:59 14:59 22:59 Output Total 450 Balance -450 Lab Results - Last 24 Hours: Laboratory Results - last 24 hr 10/21/20 Range/Units 00:10 Cord ABG pH 7.161 L (7.18-7.38) Cord ABG Base Excess -11 L (-10--2) Cord VBG pH 7.127 L (7.25-7.45) Cord VBG Base Excess -8 (-10--2) Med Orders - Current: Current Medications Acetaminophen (Acetaminophen 500 Mg Tab) 500 mg PO Q4H PRN PRN Reason: Pain (mild 1-3) Acetaminophen (Acetaminophen 500 Mg Tab) 1,000 mg PO Q4H PRN PRN Reason: Pain (mild 1-3) Benzocaine/Menthol (Benzocaine/Menthol 20%-0.5% [place] 78 Gm Cannister) 78 gm TOP ASDIRECTED PRN PRN Reason: Perineal Comfort Measure Last Admin: 10/21/20 03:07 Dose: 1 can Documented by: Bisacodyl (Bisacodyl 10 Mg Supp) 10 mg RECTAL ONETIME PRN PRN Reason: Constipation Docusate Sodium (Docusate Sodium 100 Mg Cap) 100 mg PO Q12H PRN PRN Reason: Constipation Emollient Ointment (Lanolin 100% Cream 7 Gm Tube) 0 gm TOP ASDIRECTED PRN PRN Reason: Sore Nipples Last Admin: 10/21/20 10:05 Dose: 1 applic Documented by: Ephedrine Sulfate (Ephedrine 50 Mg/Ml Sdv) 10 mg IVPUSH Q5M PRN PRN Reason: Hypotension Lactated Ringer's (Ringers, Lactated) 1,000 mls @ 150 mls/hr IV ASDIRECTED LADI Ibuprofen (Ibuprofen 400 Mg Tab) 400 mg PO Q4H PRN PRN Reason: Pain (mild 1-3) Ibuprofen (Ibuprofen 800 Mg Tab) 800 mg PO Q6H PRN PRN Reason: Pain (mild 1-3) Last Admin: 10/21/20 10:05 Dose: 800 mg Documented by: Oxycodone HCl (Oxycodone 5 Mg Tab) 5 mg PO Q2H PRN PRN Reason: Pain (severe 7-10) Sodium Chloride (Sodium Chloride 0.9% 10 Ml Syringe) 10 ml FLUSH ASDIRECTED PRN PRN Reason: Keep Vein Open Sodium Chloride (Sodium Chloride 0.9% 2.5 Ml Syringe) 2.5 ml FLUSH ASDIRECTED PRN PRN Reason: Keep Vein Open Sodium Chloride (Sodium Chloride 0.9% 10 Ml Sdv) 10 ml IV ASDIRECTED PRN PRN Reason: IV Use Witch Sushila (Witch Sushila Medicated Pads 40/Jar) 1 pad TOP ASDIRECTED PRN PRN Reason: comfort care Last Admin: 10/21/20 03:07 Dose: 1 tub Documented by: Discontinued Medications Bupivacaine HCl (Bupivacaine 0.25% 30 Ml Sdv) Confirm Administered Dose 30 ml .ROUTE .STK-MED ONE Stop: 10/20/20 18:20 Last Admin: 10/21/20 02:32 Dose: Not Given Documented by: Butorphanol Tartrate (Butorphanol 1 Mg/Ml Sdv) 1 mg IVPUSH Q1H PRN PRN Reason: Pain (severe 7-10) Carboprost Tromethamine (Carboprost Tromethamine 250 Mcg/1 Ml Amp) 250 mcg IM ASDIRECTED PRN PRN Reason: Post Hemorrhage Lactated Ringer's (Ringers, Lactated) 1,000 mls @ 150 mls/hr IV ASDIRECTED [facility] Last Admin: 10/20/20 20:03 Dose: 150 mls/hr Documented by: Oxytocin/Sodium Chloride (Oxytocin 30 Unit/500 Ml-Ns) 30 unit in 500 mls @ 999 mls/hr IV TITRATE LADI Tranexamic Acid 1,000 mg/ (Sodium Chloride) 110 mls @ 660 mls/hr IV ONETIME PRN PRN Reason: Bleeding Oxytocin/Sodium Chloride (Oxytocin 30 Unit/500 Ml-Ns) 30 unit in 500 mls @ 2 mls/hr IV TITRATE LADI; Protocol Last Titration: 10/20/20 18:57 Dose: 4 munits/min, 4 mls/hr Documented by: Ropivacaine (Naropin 0.2%) Confirm Administered Dose 200 mls @ as directed .ROUTE .[facility]-MED ONE Stop: 10/20/20 18:20 Last Admin: 10/21/20 02:32 Dose: Not Given Documented by: Lactated Ringer's (Ringers, Lactated) 1,000 mls @ 250 mls/hr IRR ASDIRECTED LADI; Protocol Last Admin: 10/20/20 19:18 Dose: 250 mls/hr Documented by: Lidocaine HCl (Lidocaine 1% 50 Ml Mdv) 50 ml INJECT ONETIME PRN PRN Reason: Laceration repair Methylergonovine Maleate (Methylergonovine 0.2 Mg/1 Ml Amp) 0.2 mg IM ASDIRECTED PRN PRN Reason: Post Hemorrhage Misoprostol (Misoprostol 200 Mcg Tab) 200 mcg PO ONETIME PRN PRN Reason: Post Hemorrhage Misoprostol (Misoprostol 25 Mcg (1/4 Of 100 Mcg) Tab) 25 mcg VAG ONETIME PRN PRN Reason: Cervical Ripening Misoprostol (Misoprostol 25 Mcg (1/4 Of 100 Mcg) Tab) 25 mcg VAG Q4H PRN PRN Reason: Cervical Ripening Nalbuphine HCl (Nalbuphine 10 Mg/1 Ml Vial) 10 mg IVPUSH Q1H PRN PRN Reason: Pain (severe 7-10) Ondansetron HCl (Ondansetron 4 Mg/2 Ml Sdv) 4 mg IVPUSH Q4H PRN PRN Reason: Nausea/Vomiting Sterile Water (Water For Irrigation,Sterile 1,000 Ml Container) 1,000 ml IRR ASDIRECTED PRN PRN Reason: delivery Terbutaline Sulfate (Terbutaline 1 Mg/Ml Sdv) 0.25 mg SUBCUT ASDIRECTED PRN PRN Reason: Tacysystole - Problem List & Annotations (1) Vaginal delivery SNOMED Code(s): 074630883 Code(s): O80 - ENCOUNTER FOR FULL-TERM UNCOMPLICATED DELIVERY Status: Acute Current Visit: Yes - Plan Plan:: Agree with Plan ,plan discharge home
[2020-10-21] MEDS: Ibuprofen 800 MG Tab PO PRN ×2 (10:05→21:48)
--- NOTE | 2020-10-21 16:21 | OR ---
SURGEON: Carl Finn MD DATE OF PROCEDURE: 10/20/2020 INDICATION FOR PROCEDURE: A 30-year-old, G1, P0, at 42 weeks and 1 day, admitted with rupture of membranes. The patient presented to Labor and Delivery last night with spontaneous rupture of membranes around 10 p.m. She was having mild contractions and was 1 cm dilated. Rupture of membranes was confirmed with positive AmniSure. The was complicated by an ovarian cyst that was initially 6 cm, but resolved on its own. She is GBS negative. She declined an earlier induction of labor and desired to wait for spontaneous labor. After arriving to Labor and Delivery, she did have regular contractions and progressed to 3 cm dilated. However, she did not make further cervical change after that point, and after about 12 hours, she agreed to Pitocin for augmentation of labor. The heart rate is mostly category 1 with periods of category 2 tracing with variable decels that would respond with repositioning. She made change to 4 cm with Pitocin. She received an epidural for pain control. An IUPC was then placed for amnioinfusions and she continued to have variable decels. She then progressed quickly to fully dilated. Her epidural was turned off because she did not have any sensation for pushing. PREOPERATIVE DIAGNOSES: 1. Arvizu intrauterine at 42 weeks and 1 day. 2. Active labor. POSTOPERATIVE DIAGNOSES: 1. Arvizu intrauterine at 42 weeks and 1 day. 2. Active labor. PROCEDURES PERFORMED: Normal spontaneous vaginal delivery, repair of bilateral periurethral lacerations, and a vaginal laceration. NYLON OPERATOR: Anita Butt MS-4. FINDINGS: Viable female infant. score of 8 and 9. Weight of 3030 g. Tight nuchal cord x1 that was reduced after delivery. DESCRIPTION OF PROCEDURE: The patient pushed with contractions for about an hour with good descent. head delivered in occiput anterior position over intact perineum, restituted JOSE LUIS. Anterior shoulder delivered easily followed by posterior shoulder and remaining body. A tight nuchal cord was reduced after delivery. The baby was pink, crying, and moving all extremities immediately after delivery. The baby was placed on maternal chest and evaluated by awaiting nursery staff. The labia and perineum were examined. She had bilateral periurethral lacerations that were bleeding. They were reapproximated with 3-0 Vicryl in running fashion. She had a superficial vaginal laceration that was repaired with a [id number]. Hemostasis was confirmed after the repair. The umbilical cord was clamped and cut after about 15 minutes. The umbilical cord gases were obtained. The placenta was removed with gentle traction on the umbilical cord. It was examined to be intact with 3-vessel cord. Fundal massage was performed and it was firm and at the umbilicus and the bleeding was light. The patient tolerated the procedure well, was given care instructions. ANTIONETTE BREWSTER /[id number]
== END 2020-10-21 22:00 | disposition home or self-care (01) | DRG 560 ==
LOC: MW.OBCHECK 23:50 → MW.OB 23:52 → MW.OBCHECK 10-20 00:58 → OBSVTOIN 10-20 23:41 → MW.OB 10-21 06:55
PROVIDERS: ADMIT Obstetrics & Gynecology; ATTEND Obstetrics & Gynecology
PROC: 10E0XZZ Delivery of Products of Conception, External Approach (ICD-10-PCS; principal; 2020-10-20)
PROC: 10H07YZ Insertion of Other Device into Products of Conception, Via Natural or Artificial Opening (ICD-10-PCS; 2020-10-20)
PROC: 0UQGXZZ Repair Vagina, External Approach (ICD-10-PCS; 2020-10-20)
PROC: 0UQMXZZ Repair Vulva, External Approach (ICD-10-PCS; 2020-10-20)
DX: O48.0 Post-term pregnancy (principal); Z37.0 Single live birth; O77.0 Labor and delivery complicated by meconium in amniotic fluid; O70.0 First degree perineal laceration during delivery; O69.1XX0 Labor and delivery complicated by cord around neck, with compression, not applicable or unspecified; Z20.822 Contact with and (suspected) exposure to COVID-19; Z3A.42 42 weeks gestation of pregnancy
CPT/HCPCS: 36415; 51702; 59025; 59409; 82803; 84112; 85027; 86592; 86850; 86900; 86901; A9270-GY; J2590; J2795; J3490; J7120; U0002